=== PATIENT | male | born 1985 | race Two or more races ===

== ENCOUNTER 2017-03-27 13:52 | Emergency (ER) | payer OTHER ==
--- NOTE | 2017-03-27 13:59 | ER Document Report ---
ED Medical Screen (RME) - General Chief Complaint: S/S of Possible Stroke Stated Complaint: POSSIBLE STROKE Time Seen by Provider: 03/27/17 13:55 Mode of Arrival: Ambulatory Information source: Patient Notes: 31-year-old male presenting with right upper extremity tremor. Patient appears very anxious. Patient states that he did not sleep at all night, at 0600 this morning he has had to take some of his "old sleeping pills". Patient took "20 mg of Loxapine and 4 mg of Succinate". - Related Data Allergies/Adverse Reactions: No Known Allergies Allergy (Unverified 03/27/17 14:03) Past Medical History - General Information source: [facility] Records Psychiatric Medical History: Reports: Hx Schizophrenia Review of Systems - Review of Systems Neurological/Psychological: See HPI, Anxiety, Other - Hx panic attacks, RUE tremor Physical Exam - Vital signs Vitals: Temp Pulse Resp BP Pulse Ox 98 F 144 H 22 H 147/11 H 98 03/27/17 14:12 03/27/17 14:12 03/27/17 14:12 03/27/17 14:12 03/27/17 14:12 - General General appearance: Anxious - HEENT Head: Normocephalic, Atraumatic Eyes: Normal Conjunctiva: Normal - Respiratory Respiratory status: No respiratory distress Chest status: Nontender Breath sounds: Normal - Cardiovascular Rhythm: Tachycardia Heart sounds: Normal auscultation Murmur: No - Psychological Associated symptoms: Anxious, Other - Stuttering speech, RUE tremor Course - Vital Signs Vital signs: Temp Pulse Resp BP Pulse Ox 98 F 144 H 22 H 147/11 H 98 03/27/17 14:12 03/27/17 14:12 03/27/17 14:12 03/27/17 14:12 03/27/17 14:12 - Laboratory Result Diagrams: 03/27/17 14:00 03/27/17 15:28 Laboratory results interpreted by me: 03/27/17 03/27/17 14:00 15:28 RBC 5.77 H Carbon Dioxide 21 L Calcium 11.0 H Scribe Documentation - Scribe Written by Scribe:: Elizabeth Brock, 03/27/2017 1468 acting as scribe for :: Edwin
[2017-03-27] MEDS ORDERED: DIPHENHYDRAMINE HCL 50 MG/ML VIAL IV ONE ×2 (14:06→16:14)
[2017-03-27 14:43] LABS: ABSOLUTE BASOPHILS # (AUTO) 0.1 10^3/uL (0.0-0.2); ABSOLUTE EOSINOPHILS # (AUTO) 0.3 10^3/uL (0.0-0.6); ABSOLUTE LYMPHOCYTES (AUTO) 1.3 10^3/uL (0.5-4.7); ABSOLUTE MONOCYTES (AUTO) 0.6 10^3/uL (0.1-1.4); ABSOLUTE NEUT (AUTO) 6.3 10^3/uL (1.7-8.2); BASOPHILS % (AUTO) 0.7 % (0-2); EOSINOPHILS % (AUTO) 3.2 % (0-6); HEMATOCRIT 47.5 % (37.9-51.0); HEMOGLOBIN 16.2 g/dL (13.5-17.0); LYMPHOCYTES % (AUTO) 14.8 % (13-45); MEAN CORPUSCULAR HEMOGLOBIN 28.2 pg (27.0-33.4); MEAN CORPUSCULAR HGB CONC 34.2 g/dL (32.0-36.0); MEAN CORPUSCULAR VOLUME 82 fl (80-97); MONOCYTES % (AUTO) 6.7 % (3-13); PLATELET COUNT 275 10^3/uL (150-450); RED BLOOD COUNT 5.77 10^6/uL (4.35-5.55); RED CELL DISTRIBUTION WIDTH 13.2 % (11.5-14.0); SEGMENTED NEUTROPHILS % (AUTO) 74.6 % (42-78); TOTAL CELLS COUNTED % (AUTO) 100 %; WHITE BLOOD COUNT 8.5 10^3/uL (4.0-10.5)
[2017-03-27 16:01] LABS: ANION GAP 12 (5-19); BLOOD UREA NITROGEN 12 mg/dL (7-20); CARBON DIOXIDE 21 mmol/L (22-30); CHLORIDE 105 mmol/L (98-107); GLUCOSE 97 mg/dL (75-110); POTASSIUM 4.3 mmol/L (3.6-5.0); SODIUM 138.3 mmol/L (137-145)
[2017-03-27] MEDS: RINGERS SOLUTION,LACTATED 1,000 ML IV PRN ×2 (16:24→17:47)
[2017-03-27 16:35] LABS: URINE AMPHETAMINES SCREEN NEGATIVE; URINE BARBITURATES SCREEN NEGATIVE; URINE BENZODIAZEPINES SCREEN NEGATIVE; URINE COCAINE SCREEN NEGATIVE; URINE MARIJUANA (THC) SCREEN UNCONFIRMED POSITIVE; URINE METHADONE SCREEN NEGATIVE; URINE PHENCYCLIDINE SCREEN NEGATIVE
[2017-03-27] MEDS ORDERED: BENZTROPINE MESYLATE 1 MG TABLET PO ONE (17:11)
[2017-03-27] MEDS ORDERED: LORAZEPAM INJ 2 MG/1 ML VIAL IV ONE (17:11)
--- NOTE | 2017-03-27 17:34 | ER Document Report ---
ED General - General Chief Complaint: S/S of Possible Stroke Stated Complaint: POSSIBLE STROKE Time Seen by Provider: 03/27/17 13:55 Mode of Arrival: Ambulatory Notes: Patient says he noted about 8 AM this morning that his jaw hurt and that he could not speak. He felt as if his jaw was swollen. Additionally, patient's been noting cramping in both of his legs and having the shakes. At one time, patient says he was completely numb on his right side. Patient has a problem sleeping and has some leftover pills that he was prescribed in the past and took several of them last night. He describes taking Loxipine succinate about 3 AM and then taking another couple of those same pills between 3 AM and 6 AM this morning. Additionally, patient took a prazosin about 6 AM this morning. When he arrived here in triage, it was thought that he might be having a dystonic reaction and he had an IV started and was given 50 mg of Benadryl IV. Patient says that immediately stopped the symptoms he was having. Patient was medically discharged from the . Has been treated for PTSD and TBI. - Related Data Allergies/Adverse Reactions: No Known Allergies Allergy (Unverified 03/27/17 14:03) Past Medical History - General Information source: [facility] Records - Social History Smoking Status: Current Every Day Smoker Chew tobacco use (# tins/day): No Frequency of alcohol use: Rare Drug Abuse: None Family History: Reviewed & Not Pertinent Patient has suicidal ideation: No Patient has homicidal ideation: No Neurological Medical History: Reports: Other - History of TBI. Psychiatric Medical History: Reports: Hx Post Traumatic Stress Disorder, Hx Schizophrenia, Other Review of Systems - Review of Systems Notes: CONSTITUTIONAL : Denies fever. CARDIOVASCULAR: Denies chest pain. RESPIRATORY: Denies cough, chest congestion, or shortness of breath. GASTROINTESTINAL: Denies abdominal pain or nausea, vomiting, or diarrhea. GENITOURINARY: Denies difficulty or painful urinating, urinary frequency, blood in urine. Neurologically: See HPI. Physical Exam - Vital signs Vitals: Temp Pulse Resp BP Pulse Ox 98 F 144 H 22 H 147/11 H 98 03/27/17 14:12 03/27/17 14:12 03/27/17 14:12 03/27/17 14:12 03/27/17 14:12 Interpretation: Tachycardic - Heart rate 130 by me at bedside. - Notes Notes: PHYSICAL EXAMINATION: GENERAL: Well-appearing, no acute distress. HEAD: Atraumatic, normocephalic. NECK: Normal range of motion, supple. LUNGS: Breath sounds clear and equal bilaterally. HEART: Regular rate and rhythm without murmurs heard. Heart rate 130 by me at bedside. ABDOMEN: Soft, nontender. No guarding or rebound or masses felt. Neurological exam is intact. Patient is alert and oriented 3. Can move all 4 extremities. Can stand and walk without difficulty. Course - Re-evaluation Re-evalutation: 03/27/17 17:14 Patient is receiving 2 L of Ringer's lactate. He got good relief of his cramping and other symptoms when he was triaged after receiving 50 mg of Benadryl IV. However, his symptoms seem to be returning and is complaining of severe cramping of both legs. At this time, is also complaining of a tremor of his right hand. I do not think any of these findings are pathophysiologic. I will give him a milligram of Ativan IV and see if that improves his symptoms. After the patient received 2 L of saline, his pulse rate had slowed down to 80, normal sinus rhythm on the monitor. He was given a second dose of Benadryl IV because he had recurrence of the initial symptoms. After that, the patient had an episode or 2 of shaking, it appeared to me to be involuntary shaking of the patient's right hand. No real neurologic deficits or symptoms. Patient no longer had symptoms suggestive of a dystonic reaction. - Vital Signs Vital signs: Temp Pulse Resp BP Pulse Ox 98 F 98 19 151/104 H 98 03/27/17 14:12 03/27/17 15:00 03/27/17 18:01 03/27/17 18:01 03/27/17 18:01 - Laboratory Result Diagrams: 03/27/17 14:00 03/27/17 15:28 Laboratory results interpreted by me: 03/27/17 03/27/17 14:00 15:28 RBC 5.77 H Carbon Dioxide 21 L Calcium 11.0 H Discharge - Discharge Clinical Impression: Dystonic drug reaction, Anxiety Condition: Stable Disposition: HOME, SELF-CARE Additional Instructions: Dystonic Reaction to Medication Your symptoms were caused by the effects of medication on the "muscle control" areas of the brain. This results in uncontrollable movements and muscle spasms. The symptoms usually start with the mouth, jaw, and tongue, but may involve any area of the body. Anti-nausea medications and psychiatric medications (such as Compazine, Reglan, Haldol) can cause this side effect. The usual treatment is diphenhydramine (Benadryl). Mild cases may require only oral medication. However, intravenous medication is most rapidly effective and is usually necessary for severe reactions. It's usually a good idea to take diphenhydramine by mouth for a day or two after the emergency treatment. Your doctor will discuss this with you. It's best to avoid the medicine that caused this reaction in the future. But if it's important that you continue this medicine, you can do so, while using Benadryl on a regular basis to suppress the dystonic reaction. This is not a true allergy. Return if muscle pains or spasms, difficulty breathing or swallowing, or uncontrollable motions occur again. Diphenhydramine The use of diphenhydramine (Benadryl) has been recommended to control allergic symptoms. The 25 mg strength is available over- the-counter, as well as the elixir. This antihistamine is used for many symptoms. It's useful for itching, watering eyes and nose, allergic swelling, hives, and insect stings. The medication can be repeated four times daily. Age Elixir (12.5 mg/tsp) 25 mg pill adult 1-2 tabs Antihistamines may cause drowsiness, especially with the first dose. Do not operate machinery or drive while under the effects of the medication. Do not combine the medication with alcohol, or with any other medication without talking to your doctor. Continue to take Benadryl for cramping and spasms over the next day or 2, as needed. Anxiety The physician feels that some of your health problems are being caused by anxiety. Anxiety affects your health in many ways. Anxiety alone can cause palpitations, sweats, chest pains, abdominal pains, shortness of breath, and headaches. It contributes to ulcer disease, high blood pressure, irritable bowel syndrome, and has been shown to cause flare-ups of many other diseases. Anxiety is not a simple disorder to treat. If the anxiety is due to recent life stresses, you may simply need time to "work through" the changes. If the anxiety is due to an underlying unhappiness with yourself or due to psychiatric disturbance, professional help will be needed. Your physician can refer you for further help if needed. Anti-anxiety medication is occasionally given if the stress is acute or if you are having trouble sleeping. Chronic or frequent use of these medications is not a good idea because the body becomes reliant on it, preventing you from dealing with life's normal stresses. Benzodiazepines You have been given a benzodiazepine medication. Examples of this type of medicine include Valium, Xanax, Librium, Ativan, and Halcion. Benzodiazepines have many uses. Medications of this type are used for insomnia, anxiety, muscle spasms, seizures, and drug and alcohol withdrawal. You may become very drowsy when you first take the medication. You should not drive or operate machinery while under its effects. Do not combine the medication with alcohol, or with any other medication without talking to your doctor. Do not take if without specific instruction from your corner cutter. Some benzodiazepines may have harmful interactions with oral antifungal medicines such as ketoconazole, itraconazole, and nefazodone. If you are taking an antifungal medicine, discuss this with your doctor before taking benzodiazepines. FOLLOW-UP CARE: If you have been referred to a physician for follow-up care, call the physician s office for an appointment as you were instructed or within the next two days. If you experience worsening or a significant change in your symptoms, notify the physician immediately or return to the Emergency Department at any time for re-evaluation. Keep your appointment to be evaluated at mental health on Wednesday. Have your blood pressure rechecked in a few days. Only take prescription medications in the manner described on the medication label! Prescriptions: Lorazepam [Ativan 1 mg Tablet] 1 mg PO Q4HP PRN #6 tab PRN Reason:
[2017-03-27 18:43] VITALS: BP 151/104
== END 2017-03-27 18:40 | disposition home or self-care (01) ==
LOC: ER 13:52
DX: G24.09 Other drug induced dystonia (principal); T43.595A Adverse effect of other antipsychotics and neuroleptics, initial encounter; F41.9 Anxiety disorder, unspecified; R68.84 Jaw pain; R25.2 Cramp and spasm; Z79.899 Other long term (current) drug therapy; F17.200 Nicotine dependence, unspecified, uncomplicated
CPT/HCPCS: 96376; 99285; 96361; 96374; 96375; 36415; 85025; 80048; 80307; J1200; J2060; J7120

== ENCOUNTER 2017-07-14 02:19 | Emergency (ER) | payer OTHER ==
[2017-07-14] MEDS ORDERED: LIDOCAINE 1% INJ-PF (10 MG/ML) 30 ML SDV INFIL ONE (02:33)
[2017-07-14] MEDS ORDERED: LIDOCAINE 1% INJ-PF (10 MG/ML) 30 ML SDV ONE (02:36)
--- NOTE | 2017-07-14 02:57 | ER Document Report ---
ED General - General Stated Complaint: FINGER INJURY Time Seen by Provider: 07/14/17 02:26 Mode of Arrival: Ambulatory Information source: Patient Notes: 32-year-old male presents with titanium ring on his left hand second digit that has become stuck after he bruised his finger caused swelling Tetanus is up-to-date - HPI Onset: Just prior to arrival Onset/Duration: Sudden Quality of pain: Pressure Severity: Severe Pain Level: 4 Associated symptoms: Other Exacerbated by: Denies Relieved by: Denies Similar symptoms previously: No Recently seen / treated by doctor: No - Related Data Allergies/Adverse Reactions: No Known Allergies Allergy (Unverified 03/27/17 14:03) Past Medical History - Social History Smoking Status: Current Every Day Smoker Cigarette use (# per day): Yes Chew tobacco use (# tins/day): No Smoking Education Provided: No Family History: Reviewed & Not Pertinent Renal/ Medical History: Denies: Hx Peritoneal Dialysis Psychiatric Medical History: Reports: Hx Post Traumatic Stress Disorder, Hx Schizophrenia Review of Systems - Review of Systems Notes: REVIEW OF SYSTEMS: CONSTITUTIONAL : Denies fever, chills, or sweats. Denies recent illness. EENT: Denies eye, ear, throat, or mouth pain or symptoms. Denies nasal or sinus congestion or discharge. Denies throat, tongue, or mouth swelling or difficulty swallowing. CARDIOVASCULAR: Denies chest pain. Denies palpitations or racing or irregular heart beat. Denies ankle edema. RESPIRATORY: Denies cough, cold, or chest congestion. Denies shortness of breath, difficulty breathing, or wheezing. GASTROINTESTINAL: Denies abdominal pain or distention. Denies nausea, vomiting , or diarrhea. Denies blood in vomitus, stools, or per rectum. Denies black, tarry stools. Denies constipation. GENITOURINARY: Denies difficulty urinating, painful urination, burning, frequency, blood in urine, or discharge. MUSCULOSKELETAL: Denies back or neck pain or stiffness. Denies joint pain or swelling. SKIN: Denies rash, lesions or sores. HEMATOLOGIC : Denies easy bruising or bleeding. LYMPHATIC: Denies swollen, enlarged glands. NEUROLOGICAL: Denies confusion or altered mental status. Denies passing out or loss of consciousness. Denies dizziness or lightheadedness. Denies headache. Denies weakness or paralysis or loss of use of either side. Denies problems with gait or speech. Denies sensory loss, numbness, or tingling. Denies seizures. PSYCHIATRIC: Denies anxiety or stress. Denies depression, suicidal ideation, or homicidal ideation. ALL OTHER SYSTEMS REVIEWED AND NEGATIVE. Dictation was performed using [employer] voice recognition software PHYSICAL EXAMINATION: GENERAL: Well-appearing, well-nourished and in no acute distress. HEAD: Atraumatic, normocephalic. EYES: Pupils equal round extraocular movements intact, conjunctiva are normal. ENT: Nares patent NECK: Normal range of motion LUNGS: No respiratory distress Musculoskeletal: Normal range of motion NEUROLOGICAL: Normal speech, normal gait. PSYCH: Normal mood, normal affect. SKIN: Left hand second digit is swollen tender there is good cap refill ring is stuck and unable to move Physical Exam - Vital signs Vitals: Temp Pulse Resp BP Pulse Ox 97.9 F 72 18 136/93 H 98 07/14/17 02:20 07/14/17 02:20 07/14/17 02:20 07/14/17 02:20 07/14/17 02:20 Course - Re-evaluation Re-evalutation: Patient was immediately seen digital nerve block was performed, I attempted to use lubrication was unable to do so, attempted to get strength under to move the swelling and this failed as well Attempted to use our ring cutter and this broke 07/14/17 03:32 After multiple failed attempts, surgical intervention, surgical list brought a drill bit which was unsuccessful, i called dispatch to see if fire department can help [facility] 07/14/17 03:47 Fire department unable to assist with ring cutter, [facility] does have a titanium drill cutter we will obtain that from them 07/14/17 05:32 After approximately 1 hour of using the drill cutter I was able to remove the ring multiple small abrasions are noted is good cap refill patient is able to move his digit Patient will be started on antibiotics x-ray is pending 07/14/17 05:50 X-ray noted no foreign body After performing a Medical Screening Examination, I estimate there is LOW risk for OPEN FRACTURE, COMPARTMENT SYNDROME, TENDON RUPTURE, ACUTE NEUROVASCULAR INJURY, or RETAINED FOREIGN BODY, thus I consider the discharge disposition reasonable. Also, there is no evidence or peritonitis, sepsis, or toxicity. I have reevaluated this patient multiple times and no significant life threatening changes are noted. The patient and I have discussed the diagnosis and risks, and we agree with discharging home with close follow-up with the understanding that symptoms and presentations can change. We also discussed returning to the Emergency Department immediately if new or worsening symptoms occur. We have discussed the symptoms which are most concerning (e.g., changing or worsening pain, fever, numbness, weakness, cool or painful digits) that necessitate immediate return. - Vital Signs Vital signs: Temp Pulse Resp BP Pulse Ox 97.9 F 72 18 136/93 H 98 07/14/17 02:20 07/14/17 02:20 07/14/17 02:20 07/14/17 02:20 07/14/17 02:20 - Diagnostic Test Radiology reviewed: Image reviewed, Reports reviewed Procedures - Additional Procedures digital nerve blocj Time performed: 04:50 - using 10 cc of lido without epi complte releif ring removal Notes: 07/14/17 05:51 using a shelly drill bit removal of ring after 2 hours of attempts Discharge - Discharge Clinical Impression: Foreign body Constriction injury of finger of left hand Qualifiers: Encounter type: initial encounter Qualified Code(s): S60.449A - External constriction of unspecified finger, initial encounter Condition: Stable Disposition: HOME, SELF-CARE Instructions: Wound Infection ([facility]) Additional Instructions: Follow up with your physician tomorrow for further care or return to the ED IMMEDIATELY if symptoms worsen or new concerns occur. If you cannot afford to follow up with your primary care physician a list of low cost clinics have been provided at the end of your discharge papers as well.
[2017-07-14] MEDS ORDERED: CEPHALEXIN 500 MG CAPSULE PO ONE (05:28)
--- NOTE | 2017-07-14 06:02 | RADIOLOGY REPORT (SQ) ---
EXAM DESCRIPTION: CR, left fingers CLINICAL HISTORY: 32 years Male, contusion COMPARISON: None. Findings: 0.3 x 0.2 cm curvilinear ossicle at the lateral aspect of the left third proximal phalangeal base probably due to chronic avulsive injury. Mild swelling of the left second digit.. Bones, joints, and soft tissues of the CR, left fingers appear otherwise intact. IMPRESSION: Mild swelling. 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
[2017-07-14 06:09] VITALS: BP 138/85
== END 2017-07-14 06:10 | disposition home or self-care (01) ==
LOC: ER 02:19
DX: S60.441A External constriction of left index finger, initial encounter (principal); S60.411A Abrasion of left index finger, initial encounter; W49.04XA Ring or other jewelry causing external constriction, initial encounter; F17.210 Nicotine dependence, cigarettes, uncomplicated
CPT/HCPCS: 99283; 73140; 64450; J3490